=== PATIENT | male | born 1980 | race Two or more races ===

== ENCOUNTER 2019-02-26 09:35 | Emergency (ER) | payer OTHER ==
[~2019-02-26] VITALS: Ht 162.6 cm; Wt 83.9 kg
[~2019-02-26 09:35] MED LIST: KETO10TA2 PO; TAMS0.4C PO
== END 2019-02-26 18:21 | disposition home or self-care (01) ==
LOC: ER 09:35
DX: N20.0 Calculus of kidney (principal); R33.8 Other retention of urine; R10.32 Left lower quadrant pain